=== PATIENT | male | born 1965 | race Caucasian/White ===

== ENCOUNTER 2018-02-08 10:36 | Emergency (ER) | payer MEDICAID ==
[2018-02-08] MEDS ORDERED: IBUPROFEN 800 MG TABLET PO ONE (11:10)
--- NOTE | 2018-02-08 11:35 | RADIOLOGY REPORT (SQ) ---
EXAM DESCRIPTION: KNEE LEFT 4 VIEW COMPLETED DATE/TIME: 02/08/2018 11:25 am REASON FOR STUDY: fall pain COMPARISON: None. NUMBER OF VIEWS: Four views. TECHNIQUE: AP, lateral, and both oblique radiographic images acquired of the left knee. LIMITATIONS: None. FINDINGS: MINERALIZATION: Normal. BONES: No acute fracture or dislocation. No worrisome bone lesions. JOINT: No effusion. SOFT TISSUES: No soft tissue swelling. No radio-opaque foreign body. OTHER: No other significant finding. IMPRESSION: NEGATIVE STUDY OF THE LEFT KNEE. NO RADIOGRAPHIC EVIDENCE OF ACUTE INJURY. TECHNICAL DOCUMENTATION: JOB ID: [id number] [email or web address]- All Rights Reserved Reading location - IP/workstation name: [email or web address]
--- NOTE | 2018-02-08 11:36 | RADIOLOGY REPORT (SQ) ---
EXAM DESCRIPTION: KNEE RIGHT 4 VIEWS COMPLETED DATE/TIME: 02/08/2018 11:25 am REASON FOR STUDY: fall pain COMPARISON: None. NUMBER OF VIEWS: Four views. TECHNIQUE: AP, lateral, and both oblique radiographic images acquired of the right knee. LIMITATIONS: None. FINDINGS: MINERALIZATION: Normal. BONES: No acute fracture or dislocation. No worrisome bone lesions. JOINT: No effusion. SOFT TISSUES: No soft tissue swelling. No radio-opaque foreign body. OTHER: No other significant finding. IMPRESSION: NEGATIVE STUDY OF THE RIGHT KNEE. NO RADIOGRAPHIC EVIDENCE OF ACUTE INJURY. TECHNICAL DOCUMENTATION: JOB ID: [id number] [employer]- All Rights Reserved Reading location - IP/workstation name: [email or web address]
--- NOTE | 2018-02-08 12:50 | RADIOLOGY REPORT (SQ) ---
EXAM DESCRIPTION: VENOUS BILATERAL LOWER COMPLETED DATE/TIME: 02/08/2018 12:31 pm REASON FOR STUDY: fell 2 weeks ago pain from knee down COMPARISON: None. TECHNIQUE: Dynamic and static hernandes scale and color images acquired of both lower extremity venous sy stems. Selected spectral images acquired with additional compression and augmentation maneuvers. Imag es stored on PACS. LIMITATIONS: None. FINDINGS: RIGHT LEG COMMON FEMORAL AND FEMORAL: Normal phasicity, compression and augmentation. No visualized echogenic m aterial on hernandes scale. No defects on color images. POPLITEAL: Normal compression and augmentation. No visualized echogenic material on hernandes scale. No de fects on color images. CALF VESSELS: Normal compression and augmentation. No visualized echogenic material on hernandes scale. No defects on color image. GSV AND SSV: Normal compression. No visualized echogenic material on hernandes scale. No defects on color images. ANY DEEP VENOUS INSUFFICIENCY: Not evaluated. ANY EVIDENCE OF POPLITEAL CYST: No. OTHER: No other significant finding. LEFT LEG COMMON FEMORAL AND FEMORAL: Normal phasicity, compression and augmentation. No visualized echogenic m aterial on hernandes scale. No defects on color images. POPLITEAL: Normal compression and augmentation. No visualized echogenic material on hernandes scale. No de fects on color images. CALF VESSELS: Normal compression and augmentation. No visualized echogenic material on hernandes scale. No defects on color images. GSV AND SSV: Normal compression. No visualized echogenic material on hernandes scale. No defects on color images. ANY DEEP VENOUS INSUFFICIENCY: Not evaluated. ANY EVIDENCE POPLITEAL CYST: No. OTHER: No other significant finding. IMPRESSION: NO EVIDENCE DVT OR SVT IN EITHER LEG. TECHNICAL DOCUMENTATION: JOB ID: [id number] [employer]- All Rights Reserved Reading location - IP/workstation name: [email or web address]
--- NOTE | 2018-02-08 13:09 | ER Document Report ---
ED Extremity Problem, Lower - General Chief Complaint: Knee Pain Stated Complaint: KNEE PAIN Time Seen by Provider: 02/08/18 11:08 Mode of Arrival: Ambulatory Information source: Patient Notes: 52-year-old male presented ED for complaint of bilateral knee pain for 2 days. He states he fell about a week and a half ago off of a ladder. He states he was not having any pain for over a week and then 2 days ago he started having pain and swelling to his legs. He does have varicose veins to both legs but no obvious swelling or injuries noted. He does complain of tenderness to both legs. Patient is alert and oriented respirations regular and on and able to walk with a even steady gait. TRAVEL OUTSIDE OF THE [place] IN LAST 30 DAYS: No - HPI Patient complains to provider of: Injury, Pain Location: Knee, Leg Occurred: Other - States he fell a week and a half ago but his swelling just started 2 days ago. Where: Outdoors, Work Onset/Duration: Gradual, Persistent Quality of pain: Achy, Throbbing Severity: Moderate Pain Level: 4 Context: Fell Recent injury: Yes Associated symptoms: Painful ambulation Exacerbated by: Movement, Walking Relieved by: Nothing - Related Data Allergies/Adverse Reactions: codeine [Codeine] Allergy (Severe, Verified 04/18/15 16:59) Psychosis Sulfa (Sulfonamide Antibiotics) Allergy (Mild, Verified 04/18/15 16:59) Hives Past Medical History - General Information source: Patient - Social History Smoking Status: Never Smoker Cigarette use (# per day): No Chew tobacco use (# tins/day): No Smoking Education Provided: No Frequency of alcohol use: None Drug Abuse: None Occupation: Construction Lives with: Family Family History: Reviewed & Not Pertinent Patient has suicidal ideation: No Patient has homicidal ideation: No - Past Medical History Cardiac Medical History: Reports: Hx Hypercholesterolemia, Hx Hypertension Pulmonary Medical History: Reports: Hx Bronchitis Neurological Medical History: Reports: None Endocrine Medical History: Reports: None Renal/ Medical History: Reports: None Malignancy Medical History: Reports None GI Medical History: Reports: Hx Gastroesophageal Reflux Disease Musculoskeletal Medical History: Reports Hx Arthritis, Reports Hx Musculoskeletal Deformity, Reports Hx Musculoskeletal Trauma Skin Medical History: Reports None Psychiatric Medical History: Reports: None Infectious Medical History: Reports: None Past Surgical History: Reports: Hx Tonsillectomy - Immunizations Immunizations up to date: Yes Hx Diphtheria, Pertussis, Tetanus Vaccination: Yes Review of Systems - Review of Systems Constitutional: No symptoms reported EENT: No symptoms reported Cardiovascular: No symptoms reported Respiratory: No symptoms reported Gastrointestinal: No symptoms reported Genitourinary: No symptoms reported Male Genitourinary: No symptoms reported Musculoskeletal: Other - Pain and swelling to bilateral legs Skin: No symptoms reported Hematologic/Lymphatic: No symptoms reported Neurological/Psychological: No symptoms reported -: Yes All other systems reviewed and negative Physical Exam - Vital signs Vitals: Temp Pulse Resp BP Pulse Ox 97.9 F 63 16 122/85 97 02/08/18 10:42 02/08/18 10:42 02/08/18 10:42 02/08/18 10:42 02/08/18 10:42 Interpretation: Normal - General General appearance: Appears well, Alert - HEENT Head: Normocephalic, Atraumatic Eyes: Normal Pupils: PERRL - Respiratory Respiratory status: No respiratory distress Chest status: Nontender Breath sounds: Normal Chest palpation: Normal - Cardiovascular Rhythm: Regular Heart sounds: Normal auscultation Murmur: No - Abdominal Inspection: Normal Distension: No distension Bowel sounds: Normal Tenderness: Nontender Organomegaly: No organomegaly - Back Back: Normal, Nontender - Extremities General upper extremity: Normal inspection, Nontender, Normal color, Normal ROM , Normal temperature General lower extremity: Normal inspection, Normal color, Normal ROM, Normal temperature, Normal weight bearing. No: Shruthi's sign Knee: Tender, Pain with ROM, Patellar tendon intact, Tender joint line. No: Abrasion, Deformity, Dislocation, Drawer's test instability, Ecchymosis, Instability, Joint effusion, Laceration, Laxity with valgus stress, Laxity with varus stress Calf: Tender. No: Abrasion, Deformity, Ecchymosis, Instability, Laceration, Unable to bear weight - Neurological Neuro grossly intact: Yes Cognition: Normal Orientation: AAOx4 Marie Coma Scale Eye Opening: Spontaneous Marie Coma Scale Verbal: Oriented Marie Coma Scale Motor: Obeys Commands Marie Coma Scale Total: 15 Speech: Normal Motor strength normal: LUE, RUE, LLE, RLE Sensory: Normal - Psychological Associated symptoms: Normal affect, Normal mood - Skin Skin Temperature: Warm Skin Moisture: Dry Skin Color: Normal Course - Re-evaluation Re-evalutation: 02/08/18 20:52 X-rays and venous Doppler negative. Patient was instructed to follow-up with primary doctor and orthopedics. Patient was instructed on use of Tylenol Motrin. Patient verbalized understanding and agreement with treatment plan. - Vital Signs Vital signs: Temp Pulse Resp BP Pulse Ox 97.9 F 60 16 130/87 H 97 02/08/18 10:42 02/08/18 13:25 02/08/18 10:42 02/08/18 13:25 02/08/18 13:25 - Diagnostic Test Radiology reviewed: Image reviewed, Reports reviewed Discharge - Discharge Clinical Impression: Bilateral lower extremity pain Bilateral knee pain Qualifiers: Chronicity: acute Qualified Code(s): M25.561 - Pain in right knee Condition: Stable Disposition: HOME, SELF-CARE Additional Instructions: You were seen today for pain to bilateral lower extremities. He states she fell about 2 weeks ago but the pain started several days ago. I have done x-rays of both knees and there is no radiological acute injuries noted given you a written report of both of these x-rays to follow-up with your primary doctor and with orthopedics if you continue to have pain in your knees and legs. I have also had completed a venous Doppler on both legs to rule out blood clots. No blood clots were noted on either leg. USE OF TYLENOL (ACETAMINOPHEN): Acetaminophen may be taken for pain relief or fever control. It's much safer than aspirin, offering a wider range of "safe" dosages. It is safe during . Some brand names are Tylenol, Panadol, Datril, Anacin 3, Tempra, and Liquiprin. Acetaminophen can be repeated every four hours. The following are maximum recommended dosages: WEIGHT Dose Drops Elixir Chewable( 80mg) (LBS.) drprs=droppers tsp=teaspoon 6 40 mg 0.4 ml (1/2) 6-11 80 mg 0.8 ml (full) tsp 1 tab 12-16 120 mg 1 1/2 drprs 3/4 tsp 1 1/2 tabs 17-23 160 mg 2 drprs 1 tsp 2 tabs 24-30 240 mg 3 drprs 1 1/2 tsp 3 tabs 30-35 320 mg 2 tsp 4 tabs 36-41 360 mg 2 1/4 tsp 4 1/2 tabs 42-47 400 mg 2 1/2 tsp 5 tabs 48-53 480 mg 3 tsp 6 tabs 54-59 520 mg 3 1/4 tsp 6 1/2 tabs 60-64 560 mg 3 1/2 tsp 7 tabs 65-70 600 mg 3 3/4 tsp 7 1/2 tabs 71-76 640 mg 4 tsp 8 tabs 77-82 720 mg 4 1/2 tsp 9 tabs 83-88 800 mg 5 tsp 10 tabs >89 pounds or adults 650 mg to 900 mg Acetaminophen can be repeated every four hours. Maximum dose not to exceed 4000 mg a day. These maximum recommended dosages are slightly higher than the dosages written on the product container, but these dosages are very safe and below the toxic dosage for acetaminophen. ICE PACKS: Apply ice packs frequently against the painful area. Many different schedules are recommended, such as "20 minutes on, 20 minutes off" or "one hour ice, two hours rest." If you need to work, you may need to go longer between ice treatments. You should plan to have the area ice packed AT LEAST one fourth of the time. The ice should be applied over the wrap, tape, or splint, or over a layer of cloth -- not directly against the skin. Some ice bags have a built-in cloth and can be put directly on the skin. WARM PACKS: After approximately two days, apply gentle heat (such as a heating pad or hot water bottle) for about 20 to 30 minutes about every two hours -- at least four times daily. Warmth and elevation will help you make a more rapid recovery , and will ease the pain considerably. Do not use HOT heat, and never apply heat for longer than 30 minutes. The continuous heat can invisibly damage skin and muscles -- even when no burn is seen on the surface. Damaged muscles can make you MORE sore. FOLLOW-UP CARE: If you have been referred to a physician for follow-up care, call the physician s office for an appointment as you were instructed or within the next two days. If you experience worsening or a significant change in your symptoms, notify the physician immediately or return to the Emergency Department at any time for re-evaluation. Forms: Return to Work Referrals: LAKEISHA MCQUEEN MD [Primary Care Provider] - Follow up in 3-5 days NIKIA SAUCEDO MD [ACTIVE STAFF] - Follow up as needed
[2018-02-08 13:25] VITALS: BP 130/87
== END 2018-02-08 13:25 | disposition home or self-care (01) ==
LOC: ER 10:36
DX: I83.813 Varicose veins of bilateral lower extremities with pain (principal); I83.893 Varicose veins of bilateral lower extremities with other complications; M25.561 Pain in right knee; M25.562 Pain in left knee; I10 Essential (primary) hypertension; Z88.5 Allergy status to narcotic agent; Z88.2 Allergy status to sulfonamides
CPT/HCPCS: 99284; 93970; 73564 ×2; J3490

== ENCOUNTER 2019-05-08 07:39 | Emergency (ER) | payer MEDICAID ==
[2019-05-08] MEDS ORDERED: IPRATROPIUM/ALBUTEROL 0.5-2.5 MG/3 ML AMPUL NEB ONE (08:02)
--- NOTE | 2019-05-08 08:54 | RADIOLOGY REPORT (SQ) ---
EXAM DESCRIPTION: CHEST 2 VIEWS COMPLETED DATE/TIME: 05/08/2019 8:21 am REASON FOR STUDY: Shortness of Breath COMPARISON: 02/23/2016 EXAM PARAMETERS: NUMBER OF VIEWS: two views TECHNIQUE: Digital Frontal and Lateral radiographic views of the chest acquired. RADIATION DOSE: NA LIMITATIONS: none FINDINGS: LUNGS AND PLEURA: No opacities, masses or pneumothorax. No pleural effusion. MEDIASTINUM AND HILAR STRUCTURES: No masses or contour abnormalities. HEART AND VASCULAR STRUCTURES: Heart normal size. No evidence for failure. BONES: No acute findings. HARDWARE: None in the chest. OTHER: No other significant finding. IMPRESSION: NO ACUTE RADIOGRAPHIC FINDING IN THE CHEST. TECHNICAL DOCUMENTATION: JOB ID: [id number] [employer]- All Rights Reserved Reading location - IP/workstation name: [email or web address]
--- NOTE | 2019-05-08 08:56 | ER Document Report ---
HPI - HPI Patient complains to provider of: Cough sore throat Time Seen by Provider: 05/08/19 08:41 Onset: Other - 4 days Quality of pain: Achy Pain Level: 4 Context: 53-year-old male with history of bronchitis high blood pressure presents emergency department with complaints of productive cough for the past 4 days. Reports sometimes he coughed so hard he vomits. Denies fever or diarrhea. Reports a sore throat. Reports decreased appetite voiding bowel movement without problems. Respiratory rate even unlabored Associated Symptoms: Productive cough, Sore throat Exacerbated by: Denies Relieved by: Denies Similar symptoms previously: No Recently seen / treated by doctor: No - REPRODUCTIVE Reproductive: DENIES: : Past Medical History - General Information source: Patient - Social History Smoking Status: Never Smoker Chew tobacco use (# tins/day): No Frequency of alcohol use: Rare Drug Abuse: None Lives with: Family Family History: Reviewed & Not Pertinent Patient has suicidal ideation: No Patient has homicidal ideation: No - Past Medical History Cardiac Medical History: Reports: Hx Hypercholesterolemia, Hx Hypertension Pulmonary Medical History: Reports: Hx Bronchitis Denies: Hx Tuberculosis Endocrine Medical History: Denies: Hx Diabetes Mellitus Type 1, Hx Diabetes Mellitus Type 2 Renal/ Medical History: Denies: Hx Peritoneal Dialysis GI Medical History: Reports: Hx Gastroesophageal Reflux Disease Musculoskeletal Medical History: Reports Hx Arthritis, Reports Hx Musculoskeletal Deformity, Reports Hx Musculoskeletal Trauma Past Surgical History: Reports: Hx Tonsillectomy. Denies: Hx Pacemaker. Comment Only: Hx Rectal Surgery - hemorrhoid - Immunizations Immunizations up to date: Yes Hx Diphtheria, Pertussis, Tetanus Vaccination: Yes Vertical Provider Document - CONSTITUTIONAL Agree With Documented VS: Yes Exam Limitations: No Limitations General Appearance: WD/WN, No Apparent Distress - Nontoxic looking - INFECTION CONTROL TRAVEL OUTSIDE OF THE [place] IN LAST 30 DAYS: No - HEENT HEENT: Atraumatic, Normocephalic, Pharyngeal Erythema - Good airway no exudate opens mouth wide clear voice. negative: Conjuctival Injection, Tympanic Membrane Bulging - NECK Neck: Normal Inspection, Supple. negative: Lymphadenopathy-Left, Lymphadenopathy-Right - RESPIRATORY Respiratory: Breath Sounds Normal, No Respiratory Distress - CARDIOVASCULAR Cardiovascular: Regular Rate, Regular Rhythm - GI/ABDOMEN Gastrointestinal: Abdomen Soft, Abdomen Non-Tender - BACK Back: Normal Inspection - MUSCULOSKELETAL/EXTREMETIES Musculoskeletal/Extremeties: JW MCDOWELL - NEURO Level of Consciousness: Awake, Alert, Appropriate Motor/Sensory: No Motor Deficit - DERM Integumentary: Warm, Dry, No Rash Course - Re-evaluation Re-evalutation: 05/08/19 08:55 53-year-old male presents emergency department with complaints of productive cough sore throat body aches for the past 4 days. He did not receive his flu vaccine. Influenza chest x-ray and strep test ordered. 05/08/19 09:20 Chest X-Ray 05/08/19 08:04 IMPRESSION: NO ACUTE RADIOGRAPHIC FINDING IN THE CHEST. Strep and flu test negative. Chest x-ray negative for pneumonia. Patient was instructed all results. He was prescribed Tessalon Perles for his cough. He was also instructed to monitor his symptoms follow-up with his primary care provider within the week for recheck. He verbalized understanding to all instructions. - Vital Signs Vital signs: Temp Pulse Resp BP Pulse Ox 98.4 F 109 H 18 139/82 H 97 05/08/19 07:44 05/08/19 07:44 05/08/19 07:44 05/08/19 07:44 05/08/19 07:44 - Diagnostic Test Radiology reviewed: Image reviewed, Reports reviewed Discharge - Discharge Clinical Impression: Cough, Sore throat Condition: Stable Disposition: HOME, SELF-CARE Instructions: Sore Throat ([facility]), Tessalon Perles (PENDING SALE TO [facility]) Additional Instructions: *You have been evaluated for cold symptoms today, cough, sore throat Your x-ray was negative for pneumonia Your flu test and your strep test were negative. A throat culture is pending. Should you need antibiotics you will be contacted in the next 3 to 4 days In the meantime gargle with warm salt water and utilize throat lozenges for comfort *Push fluids stay well-hydrated *Take medication as prescribed *Monitor your temperature, take Tylenol as indicated *Follow up with a primary care provider within 1 week for recheck *Return to ED for worsening condition, changes, needs Prescriptions: Benzonatate [Tessalon Perles 100 mg Capsule] 100 mg PO ASDIR PRN #15 capsule PRN Reason: Referrals: RENEE MCQUEEN, BROADCAST TRANSMITTER OPERATOR [NURSE PRACTITIONER] - Follow up in 3-5 days
[2019-05-08 09:30] LABS: A TYPE INFLUENZA AG NEGATIVE (NEGATIVE); B INFLUENZA AG NEGATIVE (NEGATIVE)
[2019-05-08 10:25] VITALS: BP 161/97
== END 2019-05-08 10:28 | disposition home or self-care (01) ==
LOC: ER 07:39
DX: R05 Cough (principal); R11.10 Vomiting, unspecified; J02.9 Acute pharyngitis, unspecified; R63.0 Anorexia; I10 Essential (primary) hypertension
CPT/HCPCS: 94640; 99285; 87070; 87880; 87804; 71046; J7620

== ENCOUNTER 2019-12-05 07:56 | Emergency (ER) | payer MEDICAID ==
--- NOTE | 2019-12-05 08:36 | RADIOLOGY REPORT (SQ) ---
EXAM DESCRIPTION: HAND RIGHT 3 VIEWS IMAGES COMPLETED DATE/TIME: 12/05/2019 8:20 am REASON FOR STUDY: right hand pain COMPARISON: None. EXAM PARAMETERS: NUMBER OF VIEWS: Three views. TECHNIQUE: AP, lateral and oblique radiographic images acquired of the right hand. LIMITATIONS: None. FINDINGS: MINERALIZATION: Normal. BONES: No acute fracture or dislocation. No worrisome bone lesions. No significant osteophytes. JOINTS: No erosions. No debra-articular osteopenia. No chondrocalcinosis. SOFT TISSUES: No swelling. No calcifications. OTHER: No other significant finding. IMPRESSION: NEGATIVE STUDY OF THE RIGHT HAND. NO EXPLANATION FOR PAIN. TECHNICAL DOCUMENTATION: JOB ID: [id number] [email or web address]- All Rights Reserved Reading location - IP/workstation name: [email or web address]
[2019-12-05] MEDS ORDERED: KETOROLAC TROMETHAMINE 60 MG/2 ML SDV IM ONE (08:55)
--- NOTE | 2019-12-05 08:59 | ER Document Report ---
ED Hand/Wrist Injury - General Chief Complaint: Hand Pain Stated Complaint: RIGHT WRIST PAIN Time Seen by Provider: 12/05/19 08:39 Primary Care Provider: LAKEISHA MCQUEEN MD [Primary Care Provider] - Follow up as needed Notes: CHIEF COMPLAINT: Right wrist pain with numbness in fingers HPI: 54-year-old male with history of hypertension but otherwise good health presenting for numbness and tingling in the fingertips with pain on the ulnar side of the right wrist today. No upper arm pain. No chest pain. No shortness of breath. Denies headache nausea vomiting vision change weakness in the extremities. No incontinence of urine or bowel. Patient states he woke up with the discomfort. Denies acute trauma. ROS: See HPI - all other systems were reviewed and are otherwise negative Constitutional: no fever Eyes: no drainage, no blurred vision ENT: no runny nose, no sore throat Cardiovascular: no chest pain Resp: no SOB, no cough GI: no vomiting, no diarrhea, no abdominal pain : no dysuria Integumentary: no rash Allergy: no hives Musculoskeletal: + extremity pain or swelling Neurological: + numbness/tingling, no weakness MEDICATIONS: I agree with the patient medications as charted by the RN. ALLERGIES: I agree with the allergies as charted by the RN. PAST MEDICAL HISTORY/PAST SURGICAL HISTORY: Reviewed and agree as charted by RN. SOCIAL HISTORY: Reviewed and agree as charted by RN. FAMILY HISTORY: No significant familial comorbid conditions directly related to patient complaint EXAM: Reviewed vital signs as charted by RN. CONSTITUTIONAL: Alert and oriented and responds appropriately to questions. Well-appearing; well-nourished HEAD: Normocephalic; atraumatic EYES: PERRL; Conjunctivae clear, sclerae non-icteric ENT: normal nose; no rhinorrhea; moist mucous membranes; pharynx without lesions noted, no uvula edema or deviation, no tonsillar hypertrophy, phonation normal NECK: Supple without meningismus; non-tender; no cervical lymphadenopathy, no masses CARD: RRR; no murmurs, no clicks, no rubs, no gallops; symmetric distal pulses RESP: Normal chest excursion without splinting or tachypnea; breath sounds clear and equal bilaterally; no wheezes, no rhonchi, no rales, pulse oximetry 99% on room air not hypoxic ABD/GI: Normal bowel sounds; non-distended; soft BACK: The back appears normal and is non-tender to palpation EXT: Normal ROM in all joints; patient able to fully flex and extend the fingers of the right hand as well as abduct the thumb. Capillary refill less than 3 seconds in the distal tips of the fingers. Mild tenderness on palpation of the ulnar and volar distribution of the right wrist. No pain or discomfort on the radial side of the right wrist. Ulnar and radial pulse are both intact and equal. Strength is equal with massotherapist 5/5. Patient reports subjective [id number] sensation with light touch of both the dorsal and volar aspect of the right hand as well as in all the fingers. Positive Tinel and Phalen sign SKIN: Normal color for age and race; warm; dry; good turgor; no acute lesions noted NEURO: Moves all extremities equally; Motor and sensory function intact PSYCH: The patient's mood and manner are appropriate. Grooming and personal hygiene are appropriate. MDM: 54-year-old male presenting with ulnar wrist pain without history of trauma with subjective numbness tingling in all fingers across both the radial and ulnar distribution. Question carpal tunnel on this patient although findings are not specific. He has no other systemic complaints at this time. Given his age will obtain an EKG to make sure there are no acute changes but otherwise plan to place patient on a course of prednisone, cock-up splint, orthopedic referral. 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 IN LAST 30 DAYS: No - Related Data Allergies/Adverse Reactions: codeine [Codeine] Allergy (Severe, Verified 12/05/19 08:45) Psychosis Sulfa (Sulfonamide Antibiotics) Allergy (Mild, Verified 12/05/19 08:45) Hives Past Medical History - Social History Smoking Status: Never Smoker Frequency of alcohol use: None Drug Abuse: None Family History: Reviewed & Not Pertinent - Past Medical History Cardiac Medical History: Reports: Hx Hypercholesterolemia, Hx Hypertension Pulmonary Medical History: Reports: Hx Bronchitis Denies: Hx Tuberculosis Endocrine Medical History: Denies: Hx Diabetes Mellitus Type 1, Hx Diabetes Mellitus Type 2 Renal/ Medical History: Denies: Hx Peritoneal Dialysis GI Medical History: Reports: Hx Gastroesophageal Reflux Disease Musculoskeletal Medical History: Reports Hx Arthritis, Reports Hx Muscul oskeletal Deformity, Reports Hx Musculoskeletal Trauma Past Surgical History: Reports: Hx Rectal Surgery - hemorrhoid, Hx Tonsillectomy. Denies: Hx Pacemaker - Immunizations Immunizations up to date: Yes Hx Diphtheria, Pertussis, Tetanus Vaccination: Yes Physical Exam - Vital signs Vitals: Temp Pulse Resp BP Pulse Ox 98.0 F 67 18 137/84 H 96 12/05/19 08:01 12/05/19 08:01 12/05/19 08:01 12/05/19 08:01 12/05/19 08:01 Course - Re-evaluation Re-evalutation: 12/05/19 09:28 EKG normal sinus rhythm with a ventricular rate of 61. There is a PAC present. Reviewed by Dr. Thomas. no significant change from prior EKG dated April 2019 - Vital Signs Vital signs: Temp Pulse Resp BP Pulse Ox 98.0 F 67 18 137/84 H 96 12/05/19 08:01 12/05/19 08:01 12/05/19 08:01 12/05/19 08:01 12/05/19 08:01 Procedures - Immobilization Right Lower Wrist Time completed: 09:27 Pre-Proc Neuro Vasc Exam: Abnormal - Of numbness in fingertips Immobilizer type: Cock-up Performed by: RN Post-Proc Neuro Vasc Exam: Abnormal - Continue numbness in fingertips but capillary refill less than 3 seconds, Unchanged from pre-exam Alignment checked and good: Yes Discharge - Discharge Clinical Impression: Finger numbness Condition: Stable Disposition: HOME, SELF-CARE Instructions: Carpal Tunnel Syndrome ([facility]) Additional Instructions: Use the wrist plan during the day take off at night. Ice or cool compresses to the underside of the right wrist 2-3 times daily for 5 to 10 minutes at a time do not place ice directly on the skin. I suspect that you possibly have mild carpal tunnel symptoms. Take the prednisone and anti-inflammatories as prescribed follow-up closely with orthopedics for further evaluation and treatment call for appointment Prescriptions: Prednisone [Deltasone 20 mg Tablet] 2 tab PO DAILY 5 Days #10 tablet Naproxen 500 mg PO BID PRN #14 tablet PRN Reason: Referrals: LAKEISHA MCQUEEN MD [Primary Care Provider] - Follow up as needed KONG CARTAGENA MD [ACTIVE PROVISIONAL STAFF] - Follow up as needed
[2019-12-05 09:57] VITALS: BP 130/80
--- NOTE | 2019-12-05 23:01 | EKG REPORT ---
SEVERITY:- BORDERLINE ECG - SINUS RHYTHM ATRIAL PREMATURE COMPLEX BORDERLINE R WAVE PROGRESSION, ANTERIOR LEADS : Confirmed by: Shantal Muñoz MD 05-Dec-2019 23:00:31
== END 2019-12-05 09:57 | disposition home or self-care (01) ==
LOC: ER 07:56
DX: R20.0 Anesthesia of skin (principal); R20.2 Paresthesia of skin; M25.531 Pain in right wrist; I49.1 Atrial premature depolarization; I10 Essential (primary) hypertension; Z88.6 Allergy status to analgesic agent; Z88.5 Allergy status to narcotic agent; Z88.2 Allergy status to sulfonamides
CPT/HCPCS: 93005; 99283; 96372; 73130; 93010; J1885

== ENCOUNTER 2019-12-15 11:49 | Emergency (ER) | payer MEDICAID ==
[2019-12-15] MEDS ORDERED: ASPIRIN 81 MG TABLET, CHEWABLE PO ONE ×2 (13:24→19:15)
--- NOTE | 2019-12-15 13:24 | ER Document Report ---
ED Medical Screen (RME) - General Chief Complaint: Chest Pain Stated Complaint: CHEST PAIN Time Seen by Provider: 12/15/19 13:19 Primary Care Provider: LAKEISHA MCQUEEN MD [Primary Care Provider] - Follow up as needed Mode of Arrival: Ambulatory Information source: Patient Notes: 54-year-old male presents to ED for chest pain to the left side of his chest. He states in 2011 he was seen here and sent to [facility] for an [place]. He does have a history of high blood pressure cholesterol and reflux. He did not have a heart catheterization. He states they did kept him overnight due to stress test in the morning and sent him home. He states he does not smoke drink or use any drugs. He has not had any chest problems since then until now. His pain started on Sunday. He is alert oriented respirations regular nonlabored speaking in full sentences walks with even steady gait. I have greeted and performed a rapid initial assessment of this patient. A comp rehensive ED assessment and evaluation of the patient, analysis of test results and completion of medical decision making process will be conducted by an additional ED providers. TRAVEL OUTSIDE OF THE [place] IN LAST 30 DAYS: No - Related Data Allergies/Adverse Reactions: codeine [Codeine] Allergy (Severe, Verified 12/05/19 08:45) Psychosis Sulfa (Sulfonamide Antibiotics) Allergy (Mild, Verified 12/05/19 08:45) Hives Past Medical History - Social History Frequency of alcohol use: None Drug Abuse: None - Past Medical History Cardiac Medical History: Reports: Hx Hypercholesterolemia, Hx Hypertension Pulmonary Medical History: Reports: Hx Bronchitis Denies: Hx Tuberculosis Endocrine Medical History: Denies: Hx Diabetes Mellitus Type 1, Hx Diabetes Mellitus Type 2 Renal/ Medical History: Denies: Hx Peritoneal Dialysis GI Medical History: Reports: Hx Gastroesophageal Reflux Disease Musculoskeltal Medical History: Reports Hx Arthritis, Reports Hx Musculoskeletal Deformity, Reports Hx Musculoskeletal Trauma Past Surgical History: Reports: Hx Rectal Surgery - hemorrhoid, Hx Tonsillectomy. Denies: Hx Pacemaker - Immunizations Immunizations up to date: Yes Hx Diphtheria, Pertussis, Tetanus Vaccination: Yes Physical Exam - Vital signs Vitals: Temp Pulse Resp BP Pulse Ox 98.5 F 66 16 144/94 H 98 12/15/19 11:57 12/15/19 11:57 12/15/19 11:57 12/15/19 11:57 12/15/19 11:57 Course - Vital Signs Vital signs: Temp Pulse Resp BP Pulse Ox 98.5 F 66 16 144/94 H 98 12/15/19 11:57 12/15/19 11:57 12/15/19 11:57 12/15/19 11:57 12/15/19 11:57 Doctor's Discharge - Discharge Referrals: LAKEISHA MCQUEEN MD [Primary Care Provider] - Follow up as needed
--- NOTE | 2019-12-15 13:49 | RADIOLOGY REPORT (SQ) ---
EXAM DESCRIPTION: CHEST 2 VIEWS IMAGES COMPLETED DATE/TIME: 12/15/2019 1:36 pm REASON FOR STUDY: Chest pain COMPARISON: 05/08/2019 EXAM PARAMETERS: NUMBER OF VIEWS: two views TECHNIQUE: Digital Frontal and Lateral radiographic views of the chest acquired. RADIATION DOSE: NA LIMITATIONS: none FINDINGS: LUNGS AND PLEURA: No opacities, masses or pneumothorax. No pleural effusion. MEDIASTINUM AND HILAR STRUCTURES: No masses or contour abnormalities. HEART AND VASCULAR STRUCTURES: Heart normal size. No evidence for failure. BONES: No acute findings. HARDWARE: None in the chest. OTHER: No other significant finding. IMPRESSION: NO ACUTE RADIOGRAPHIC FINDING IN THE CHEST. TECHNICAL DOCUMENTATION: JOB ID: [id number] 2010 [employer]- All Rights Reserved Reading location - IP/workstation name: [email or web address]
[2019-12-15 14:10] LABS: ABSOLUTE EOSINOPHILS # (AUTO) 0.2 10^3/uL (0.0-0.6); ABSOLUTE LYMPHOCYTES (AUTO) 1.7 10^3/uL (0.5-4.7); ABSOLUTE MONOCYTES (AUTO) 0.7 10^3/uL (0.1-1.4); ABSOLUTE NEUT (AUTO) 5.5 10^3/uL (1.7-8.2); BASOPHILS % (AUTO) 0.5 % (0-2); EOSINOPHILS % (AUTO) 2.7 % (0-6); HEMATOCRIT 45.3 % (37.9-51.0); HEMOGLOBIN 15.4 g/dL (13.5-17.0); LYMPHOCYTES % (AUTO) 20.5 % (13-45); MEAN CORPUSCULAR HEMOGLOBIN 32.2 pg (27.0-33.4); MEAN CORPUSCULAR VOLUME 95 fl (80-97); MONOCYTES % (AUTO) 8.7 % (3-13); PLATELET COUNT 262 10^3/uL (150-450); RED BLOOD COUNT 4.78 10^6/uL (4.35-5.55); RED CELL DISTRIBUTION WIDTH 13.2 % (11.5-14.0); SEGMENTED NEUTROPHILS % (AUTO) 67.6 % (42-78); TOTAL CELLS COUNTED % (AUTO) 100 %; WHITE BLOOD COUNT 8.2 10^3/uL (4.0-10.5)
[2019-12-15 14:35] LABS: ALBUMIN 4.5 g/dL (3.5-5.0); ALKALINE PHOSPHATASE 75 U/L (38-126); ASPARTATE AMINO TRANSFERASE 30 U/L (17-59); BILIRUBIN,DIRECT 0.2 mg/dL (0.0-0.4); BILIRUBIN,TOTAL 3.2 mg/dL (0.2-1.3); BLOOD UREA NITROGEN 14 mg/dL (7-20); CALCIUM 9.4 mg/dL (8.4-10.2); CARBON DIOXIDE 28 mmol/L (22-30); CREATINE KINASE 105 U/L (55-170); GLUCOSE 87 mg/dL (75-110); POTASSIUM 4.6 mmol/L (3.6-5.0); TOTAL PROTEIN 7.3 g/dL (6.3-8.2)
[2019-12-15 14:41] LABS: CHLORIDE 102 mmol/L (98-107)
[2019-12-15 14:42] LABS: ANION GAP 6 (5-19)
--- NOTE | 2019-12-15 20:17 | RADIOLOGY REPORT (SQ) ---
EXAM DESCRIPTION: Noncontrast CT head CLINICAL HISTORY: 54 years Male presyncope TECHNIQUE: Noncontrast CT head. All CT scans at this facility use dose modulation, iterative reconstruction, and/or weight based dosing when appropriate to reduce radiation dose to as low as reasonably achievable. COMPARISON: None. FINDINGS: Stanford matter, white matter, ventricles, and cisterns are within normal limits. No acute hemorrhage or mass effect. Visualized portions of paranasal sinuses and mastoids are clear. Visualized portions of the calvarium are within normal limits. IMPRESSION: 1. No acute intracranial findings.
--- NOTE | 2019-12-15 21:36 | ER Document Report ---
ED General - General Chief Complaint: Chest Pain Stated Complaint: CHEST PAIN Time Seen by Provider: 12/15/19 13:19 Primary Care Provider: LAKEISHA MCQUEEN MD [Primary Care Provider] - Follow up as needed Mode of Arrival: Ambulatory Notes: This 54-year-old man presents to the emergency department with a history of chest pain she did he describes a right-sided chest pain radiating into the right side and back on Sunday. He went to see his primary care doctor this morning and directed to come to the emergency department for further evaluation and treatment. Presently the patient is asymptomatic. He describes episodic dizziness and states that he felt like he was going to pass out approximately 2 weeks ago. He denies cough, fever, fatigue or GI symptoms. He has had no contact with known positive coronavirus individuals. TRAVEL OUTSIDE OF THE [place] IN LAST 30 DAYS: No - Related Data Allergies/Adverse Reactions: codeine [Codeine] Allergy (Severe, Verified 12/05/19 08:45) Psychosis Sulfa (Sulfonamide Antibiotics) Allergy (Mild, Verified 12/05/19 08:45) Hives Past Medical History - General Information source: Patient - Social History Smoking Status: Never Smoker Frequency of alcohol use: None Drug Abuse: None Family History: Reviewed & Not Pertinent - Past Medical History Cardiac Medical History: Reports: Hx Hypercholesterolemia, Hx Hypertension Pulmonary Medical History: Reports: Hx Bronchitis Denies: Hx Tuberculosis Endocrine Medical History: Denies: Hx Diabetes Mellitus Type 1, Hx Diabetes Mellitus Type 2 Renal/ Medical History: Denies: Hx Peritoneal Dialysis GI Medical History: Reports: Hx Gastroesophageal Reflux Disease Musculoskeletal Medical History: Reports Hx Arthritis, Reports Hx Musculoskeletal Deformity, Reports Hx Musculoskeletal Trauma Past Surgical History: Reports: Hx Rectal Surgery - hemorrhoid, Hx Tonsil lectomy. Denies: Hx Pacemaker - Immunizations Immunizations up to date: Yes Hx Diphtheria, Pertussis, Tetanus Vaccination: Yes Review of Systems - Review of Systems Notes: Constitutional: Negative for fever. HENT: Negative for sore throat. Eyes: Negative for visual changes. Cardiovascular: + Chest pain. Respiratory: Negative for shortness of breath. Gastrointestinal: Negative for abdominal pain, vomiting or diarrhea. Genitourinary: Negative for dysuria. Musculoskeletal: Negative for back pain. Skin: Negative for rash. Neurological: + Dizziness, presyncopal 10 point ROS negative except as marked above and in HPI. Physical Exam - Vital signs Vitals: Temp Pulse Resp BP Pulse Ox 98.5 F 66 16 144/94 H 98 12/15/19 11:57 12/15/19 11:57 12/15/19 11:57 12/15/19 11:57 12/15/19 11:57 - Notes Notes: PHYSICAL EXAMINATION: Physical Exam: General: Well-nourished well-developed 54-year-old man in no acute distress HEENT: NC/AT, pupils equal round and reactive to light, MM moist,nares clear, oropharynx clear, airway patent Neck: supple, no adenopathy, no masses. Good range of motion Lungs: clear, no wheezing, no rales no rhonchi CVS: Regular rate and rhythm no murmur gallop or rub Abdomen: Soft, active, nontender, no masses, no hepatosplenomegaly Ext: No edema, clubbing or cyanosis. Neuro: Alert and responsive, moving all 4 extremities on command, cranial nerves intact, no focal findings Skin: Intact no open lesions, no rash Course - Re-evaluation Re-evalutation: 12/15/19 21:34 Seen for episodic chest pain and found to have a negative evaluation. CT of the head was also noted to be negative, the patient stated he feels better and is ready to be discharged. HEART Score: HEART score for chest pain patients Score Slightly suspicious 0 ECG= Normal 0 Age= 45-65 year 1 Risk factors=3 risk factors or history of atherosclerotic disease 2 Troponi =normal limit 0 Total =3 If HEART score is = 3 AND both tronponin measurments are normal, the 30 day risk of a major adverse cardiac event (all-cause mortality, myocardia infarction or need for coronary revscularization) is < 1% (Sensitivity 100%, NPV 100%). Chest pain in a patient without evidence of cardiac or other serious etiology on workup today. I discussed with patient that, based on their age, risk factors and emergency department testing today, the likelihood that their symptoms are related to a heart attack is very low (estimated risk of heart attack or over the next 30 days of less than 1%). The patient demonstrates decision making capacity and has verbalized an understanding of these risks to me. Based on this, the patient has chosen to follow-up as an outpatient. Usual chest pain return precautions reviewed. The patient states understanding and agreement with this plan. - Vital Signs Vital signs: Temp Pulse Resp BP Pulse Ox 98.5 F 66 23 H 124/81 96 12/15/19 11:57 12/15/19 11:57 12/15/19 19:03 12/15/19 19:03 12/15/19 19:02 - Laboratory Result Diagrams: 12/15/19 13:30 12/15/19 13:30 Laboratory results interpreted by me: 12/15/19 13:30 Sodium 136.3 L Total Bilirubin 3.2 H - Diagnostic Test Radiology reviewed: Image reviewed, Reports reviewed Radiology results interpreted by me: 12/15/19 21:38 Chest x-ray 1 view: No acute infiltrate, no acute cardiopulmonary findings CT head :No acute intracerebral findings. - EKG Interpretation by Me EKG shows normal: Sinus rhythm - Normal, Henderson - Normal, Intervals - No intervals, QRS Complexes - Normal QRS, ST-T Waves - Normal ST waves with no acute ischemic findings. Rate: Normal - Rate 61 Discharge - Discharge Clinical Impression: Lightheadedness Chest pain Qualifiers: Chest pain type: unspecified Qualified Code(s): R07.9 - Chest pain, unspecified Condition: Good Disposition: HOME, SELF-CARE Instructions: Chest Pain of Unclear Cause ([facility]) Additional Instructions: You were seen in the emergency department for evaluation of chest pain and dizziness. Evaluation of your chest pain reveals a normal EKG chest x-ray and negative troponins x2. Your heart score was 3 which suggest that you are unlikely to have coronary artery disease or significant heart problems. You also complained of dizziness and lightheadedness. The CT scan was completely normal as well as blood tests which were done in the emergency department today. Please follow-up with your primary care doctor and the factory engineer which was planned. HOME CARE INSTRUCTIONS & INFORMATION: Thank you for choosing us for your medical needs. We hope you're satisfied with the care you received. After you leave, you must properly care for your problem and, at the same time, observe its progress. Any condition can change. Some illnesses can change rapidly over hours or days. If your condition worsens, return to the Emergency Department or see your physician promptly. ABOUT YOUR X-RAYS AND EKG'S: If you had an EKG or X-rays taken, they have been read by the Emergency Physician. The X-rays and EKG's will also be read by a Radiologist or Ticket Broker within 24 hours. If discrepancies are noted, you will be notified by telephone. Please be certain the ED has a correct telephone number & address where you can be reached. Also, realize that some fractures or abnormalities do not show up on initial X-rays. If your symptoms continue, see your physician. ABOUT YOUR LABORATORY TEST: If you had laboratory tests, the results have been reviewed by the Emergency Physician. Some test results (for example cultures) may not be available for several days. You will be contacted if any test result shows you need additional treatment. Please be certain the ED has a correct telephone number and address where you can be reached. ABOUT YOUR MEDICATIONS: You will receive instructions on how to take your medicine on the prescription label you receive. Additional information may be provided by the Pharmacy. If you have questions afterwards, call the ED for clarification or further instructions. Some prescribed medications may cause drowsiness. Do not perform tasks such as driving a car or operating machinery without consulting your Pharmacist. If you feel you need a refill of pain medication, your condition will need re-evaluation. Please do not call for a re fill of any medication. ABOUT YOUR SIGNATURE: Signature of this document acknowledges to followin. Understanding that you received emergency treatment and that you may be released before al medical problems are known or treated. Please be certain the ED has a correct phone number & address where you can be reached. 2. Acknowledgement that you will arrange for follow-up care as recommended. 3. Authorization for the Emergency Physician to provide information to your follow-up Physician in order to maximize your care. AT ANY TIME, IF YOUR SYMPTOMS CHANGE SIGNIFICANTLY OR WORSEN OR YOU DEVELOP NEW SYMPTOMS, RETURN TO THE EMERGENCY DEPARTMENT IMMEDIATELY FOR RE-EVALUATION. OUR GOAL IS TO PROVIDE EXCELLENT MEDICAL CARE! WE HOPE THAT WE HAVE MET YOUR EXPECTATIONS DURING YOUR EMERGENCY DEPARTMENT VISIT AND THAT YOU FEEL YOU HAVE RECEIVED EXCELLENT CARE! Referrals: LAKEISHA MCQUEEN MD [Primary Care Provider] - Follow up as needed SUGEY SANTIAGO MD [ACTIVE STAFF] - Follow up as needed
[2019-12-15 21:55] VITALS: BP 126/84
--- NOTE | 2019-12-16 19:27 | EKG REPORT ---
SEVERITY:- NORMAL ECG - SINUS RHYTHM : Confirmed by: Randy Guajardo MD 16-Dec-2019 19:26:58
== END 2019-12-15 21:55 | disposition home or self-care (01) ==
LOC: ER 11:49
DX: R07.9 Chest pain, unspecified (principal); R42 Dizziness and giddiness; I10 Essential (primary) hypertension; Z88.6 Allergy status to analgesic agent; Z88.5 Allergy status to narcotic agent; Z88.2 Allergy status to sulfonamides
CPT/HCPCS: 36415; 70450; 71046; 80053; 82550; 83735; 84484; 85025; 93005; 93010; 99285

== ENCOUNTER → 2020-01-08 | Outpatient (CLI) | payer MEDICAID ==
--- NOTE | 2020-01-08 12:03 | RADIOLOGY REPORT (SQ) ---
EXAM DESCRIPTION: CAROTID DOPPLER IMAGES COMPLETED DATE/TIME: 01/08/2020 9:54 am REASON FOR STUDY: SYNCOPE AND COLLAPSE R55 SYNCOPE AND COLLAPSE COMPARISON: None. TECHNIQUE: Grayscale ultrasound, Doppler velocity and spectra, and color Doppler images acquired of the extra-cranial carotid and vertebral arteries. Images stored on PACS. LIMITATIONS: None. FINDINGS: RIGHT CAROTID CCA Velocities: Within normal limits. ICA Velocities Peak systolic 1.01 m/s. End diastolic 0.33 m/s. Proximal ICA/CCA peak systolic ratio 1.1. Minimal plaque proximal ICA. LEFT CAROTID CCA Velocities: Within normal limits. ICA Velocities Peak systolic 0.88 m/s. End diastolic 0.29 m/s. Proximal ICA/CCA peak systolic ratio 1.1. Minimal plaque proximal ICA. VERTEBRAL ARTERIES: Antegrade flow. Normal waveforms. SUBCLAVIAN ARTERIES: Not imaged. OTHER: No other significant finding. IMPRESSION: NO HEMODYNAMICALLY SIGNIFICANT STENOSIS. COMMENT: Quality ID #[id number]: Velocity criteria are extrapolated from the diameter data as defined by t he Society of Radiologists in Ultrasound Consensus Conference. Radiology 2003: 229; 340-346. TECHNICAL DOCUMENTATION: JOB ID: [id number] 2010 [employer]- All Rights Reserved Reading location - IP/workstation name: [email or web address] [email or web address]
== END ==
LOC: SP 08:19
PROVIDERS: ATTEND Obstetrics & Gynecology
DX: R55 Syncope and collapse (principal)
CPT/HCPCS: 93880

== ENCOUNTER → 2020-01-14 | Outpatient (CLI) | payer MEDICAID ==
--- NOTE | 2020-01-14 11:45 | RADIOLOGY REPORT (SQ) ---
EXAM DESCRIPTION: U/S ABD AORTIC SCREENING IMAGES COMPLETED DATE/TIME: 01/14/2020 8:44 am REASON FOR STUDY: RECURRENT PRE SYNCOPE I31.8 OTHER SPECIFIED DISEASES OF PERICARDIUM R55 SYNCOPE AND COLLAPSE COMPARISON: None. TECHNIQUE: Static and dynamic grayscale images acquired of the aorta and stored on PACs. Selected co mukesh Doppler and spectral images recorded. LIMITATIONS: None. FINDINGS: AORTIC CALIBER MAXIMAL PROXIMAL: 2.5 cm. MID: 2.7 cm. DISTAL: 2.4 cm. ILIAC DIAMETER RIGHT: 1.9 cm. LEFT: 1.9 cm. OTHER: No other finding. IMPRESSION: NO ABDOMINAL AORTIC ANEURYSM. COMMENT: Aortic Aneurysm Imaging Follow-Up: 2.6-2.9 cm Recommended followup every 5 years *Based upon the ACR White Paper in the J Am Demarcus Radiol 2013;10 (10):789-794. *For aortas of maximum diameter of 2.6-2.9 cm meeting the criteria for AAA (?1.5 x proximal normal se gment) TECHNICAL DOCUMENTATION: JOB ID: [id number] 2010 [employer]- All Rights Reserved Reading location - IP/workstation name: [email or web address]
== END ==
LOC: RAD 07:08
PROVIDERS: ATTEND Obstetrics & Gynecology
DX: I31.8 Other specified diseases of pericardium (principal); R55 Syncope and collapse
CPT/HCPCS: 76706

== ENCOUNTER 2020-01-16 00:38 | Emergency (ER) | payer MEDICAID ==
[2020-01-16] MEDS ORDERED: ACETAMINOPHEN 325 MG TABLET PO ONE (02:08)
--- NOTE | 2020-01-16 02:53 | RADIOLOGY REPORT (SQ) ---
EXAM DESCRIPTION: XR pelvis and right hip 2 views COMPLETED DATE/TME: 01/16/2020 02:12 CLINICAL HISTORY: 54 years, Male, PAIN COMPARISON: None. NUMBER OF VIEWS: TECHNIQUE: LIMITATIONS: None. FINDINGS: No fracture or dislocation. No evidence of arthritis. Mineralization of bone appears normal. IMPRESSION: No acute finding. copyright 2010 [employer]- All Rights Reserved
--- NOTE | 2020-01-16 09:06 | ER Document Report ---
Entered by SANA VILLA SCRIBE 01/16/20 0848 Acting as scribe for:VANESSA NAILS MD ED Hip Pain/Injury - General Chief Complaint: Hip Pain Stated Complaint: RIGHT HIP AND LEG PAIN Primary Care Provider: LAKEISHA MCQUEEN MD [Primary Care Provider] - Follow up as needed Mode of Arrival: Ambulatory Information source: Patient Notes: This 54 year old male patient with a history of chronic lower back pain presents to the ED today with complaints of intermittent right hip pain that started around 2100 last night. Patient states that the pain is a 3/5 in severity and radiates down to his right knee. He notes that he took Oxycodone without relief. He reports a history of x2 herniated discs, x2 bulging discs, and x2 discs with a "tear in them." He states that over x2 years ago, he had a procedure where they "burnt the nerves in my back" and that he hasn't had any issues until last night. Denies recent injury or trauma. He is not currently in a pain management clinic. Dr. Lakeisah Mcqueen is his PCP. TRAVEL OUTSIDE OF THE [place] IN LAST 30 DAYS: No - Related Data Allergies/Adverse Reactions: codeine [Codeine] Allergy (Severe, Verified 01/16/20 02:02) Psychosis Sulfa (Sulfonamide Antibiotics) Allergy (Mild, Verified 01/16/20 02:02) Hives Past Medical History - General Information source: Patient, [facility] Records - Social History Smoking Status: Never Smoker Cigarette use (# per day): No Chew tobacco use (# tins/day): No Smoking Education Provided: No Frequency of alcohol use: None Drug Abuse: None Occupation: Construction Family History: Reviewed & Not Pertinent Patient has suicidal ideation: No Patient has homicidal ideation: No - Past Medical History Cardiac Medical History: Reports: Hx Hypercholesterolemia, Hx Hypertension Pulmonary Medical History: Reports: Hx Bronchitis GI Medical History: Reports: Hx Gastroesophageal Reflux Disease Musculoskeletal Medical History: Reports Hx Arthritis, Reports Hx Musculoskeletal Deformity, Reports Hx Musculoskeletal Trauma Past Surgical History: Reports: Hx Rectal Surgery - hemorrhoid, Hx Tonsillectomy - Immunizations Immunizations up to date: Yes Hx Diphtheria, Pertussis, Tetanus Vaccination: Yes Review of Systems - Review of Systems Constitutional: No symptoms reported EENT: No symptoms reported Cardiovascular: No symptoms reported Respiratory: No symptoms reported Gastrointestinal: No symptoms reported Genitourinary: No symptoms reported Male Genitourinary: No symptoms reported Musculoskeletal: See HPI, Joint pain Hematologic/Lymphatic: No symptoms reported Neurological/Psychological: No symptoms reported -: Yes All other systems reviewed and negative Physical Exam - Vital signs Vitals: Temp Pulse BP Pulse Ox 98.1 F 63 138/84 H 95 01/16/20 01:22 01/16/20 01:22 01/16/20 01:22 01/16/20 01:22 - General General appearance: Appears well, Alert In distress: None - HEENT Head: Normocephalic, Atraumatic Eyes: Normal Pupils: PERRL - Respiratory Respiratory status: No respiratory distress Chest status: Nontender Breath sounds: Normal Chest palpation: Normal - Cardiovascular Rhythm: Regular Heart sounds: Normal auscultation, S1 appreciated, S2 appreciated Murmur: No Friction rub: No Gallop: None auscultated - Abdominal Inspection: Normal Distension: No distension Bowel sounds: Normal Tenderness: Nontender - Abdomen soft Organomegaly: No organomegaly - Back Back: Normal, Nontender - Extremities General upper extremity: Normal inspection General lower extremity: Normal inspection, Other - Negative straight leg raise, bilateral. No: Edema - Neurological Neuro grossly intact: Yes Orientation: AAOx4 Marie Coma Scale Eye Opening: Spontaneous [place] Coma Scale Verbal: Oriented Marie Coma Scale Motor: Obeys Commands Marie Coma Scale Total: 15 - Psychological Associated symptoms: Normal affect, Normal mood - Skin Skin Temperature: Warm Skin Moisture: Dry Skin Color: Normal Course - Re-evaluation Re-evalutation: 01/16/20 09:03 Patient reports he has about 3 out of 5 low back pain. And radiates into his right hip. Denies any recent trauma. - Vital Signs Vital signs: Temp Pulse Resp BP Pulse Ox 97.8 F 60 16 130/83 H 95 01/16/20 02:01 01/16/20 06:16 01/16/20 02:01 01/16/20 06:16 01/16/20 06:16 01/16/20 09:03 Vital signs stable - Diagnostic Test Radiology reviewed: Image reviewed, Reports reviewed Radiology results interpreted by me: 01/16/20 09:03 X-ray of right hip pelvis shows no acute process no fracture. Discharge - Discharge Clinical Impression: Degenerative joint disease (DJD) of lumbar spine, Right lumbar radiculopathy Condition: Stable Disposition: HOME, SELF-CARE Additional Instructions: Radiculopathy Radiculopathy is irritation of a nerve. Sometimes this is called "pinched nerve." The pain can be sharp and stabbing, constant and dull, or burning in nature. The pain can occur in any area of the chest, shoulders, or arms. Sometimes the pain is provoked by coughing or moving. Radiculopathy can be caused by physical pressure on a nerve, such as a herniated disc or swollen joint in the spine. It can also be caused by viral infections within the nerve or by nerve damage due to diabetes or blood vessel disease. Radicular pain is treated with antiinflammatory medicine. Injections may help resistant cases, if we can identify a single nerve that's causing the pain. Surgery is usually not necessary. If symptoms do not improve with time, you may need additional testing, such as an MRI or EMG (electromyogram). Return if there is local weakness or numbness, shortness of breath, increasing pain, or other new symptoms. Prescriptions: Prednisone [Deltasone 20 mg Tablet] 2 tab PO DAILY 5 Days #10 tablet Forms: Return to Work Referrals: LAKEISHA MCQUEEN MD [Primary Care Provider] - Follow up as needed I personally performed the services described in the documentation, reviewed and edited the documentation which was dictated to the scribe in my presence, and it accurately records my words and actions.
[2020-01-16 09:18] VITALS: BP 144/80
== END 2020-01-16 09:19 | disposition home or self-care (01) ==
LOC: ER 00:38
DX: M47.26 Other spondylosis with radiculopathy, lumbar region (principal); I10 Essential (primary) hypertension; Z98.890 Other specified postprocedural states; Z88.6 Allergy status to analgesic agent; Z88.5 Allergy status to narcotic agent; Z88.2 Allergy status to sulfonamides
CPT/HCPCS: 99283; 73502; J3490